=== PATIENT | male | born 1965 | race Caucasian/White ===

== ENCOUNTER 2017-07-25 19:04 | Emergency (ER) | payer BC ==
[~2017-07-25] VITALS: Ht 177.8 cm; Wt 94.2 kg
[~2017-07-25 19:04] MED LIST: ALLO300T2 PO; GABA-113 PO; LISI10TA PO; SIMV20TA2 PO; VIMOVO PO
[2017-07-25 19:18] VITALS: TEMP 36.9; Ht 177.8 cm; Wt 94.2 kg
[2017-07-25] MEDS ORDERED: ONDANSETRON 4MG OD TAB PO STA (19:35)
[2017-07-25] MEDS ORDERED: OXYCODONE/ACETAMINOPHEN 5-325 TAB PO STA (19:35)
[2017-07-25] MEDS ORDERED: DIPHTHERIA/TETANUS/PERTUSSIS 0.5 ML SYR/VIAL IM. ONE (19:45)
[2017-07-25] MEDS ORDERED: ATOR-24 PO (20:17)
[2017-07-25] MEDS ORDERED: LISI-725 PO (20:17)
[2017-07-25] MEDS ORDERED: INDO-24 PO (20:17)
[2017-07-25] MEDS ORDERED: GLC/500 PO (20:17)
[2017-07-25] MEDS ORDERED: SERT-234 PO (20:17)
[2017-07-25] MEDS ORDERED: PRLSR20 PO (20:17)
[2017-07-25] MEDS ORDERED: MELO15TA4 PO (20:17)
[2017-07-25] MEDS ORDERED: SITA100T3 PO (20:17)
--- NOTE | 2017-07-25 20:41 | DIAGNOSTIC IMAGING REPORT ---
LUMBAR SPINE WITHOUT CT DOSE: 1082.72 mGy.cm HISTORY: hx surgery; fall TECHNIQUE: Multiaxial CT images of the lumbar spine were performed and reformatted in the sagittal and coronal plane without the use of contrast. A dose lowering technique was utilized adhering to the principles of ALARA. COMPARISON: None. FINDINGS: No evidence for acute compression deformity. Degenerative disc change most prominent from L1 through L3. Findings of a posterior hemilaminotomy on the right L5-S1. Broad-based bulging discs from L3 through L5. No major compromise of the spinal canal. IMPRESSION: Degenerative and postoperative change. No acute process. Multilevel bulging discs with no major compromise of the spinal canal The above report was generated using voice recognition software. It may contain grammatical, syntax or spelling errors. Electronically signed by: Delfino Medina M.D. 07/25/2017 8:40 PM Dictated Date/Time: 07/25/2017 8:25 PM
--- NOTE | 2017-07-25 20:45 | DIAGNOSTIC IMAGING REPORT ---
R ELBOW MIN 3 VIEWS ROUTINE CLINICAL HISTORY: fall trauma. Pain. COMPARISON: None. DISCUSSION: The bones and joint spaces appear intact. There is no evidence of fracture, dislocation or bony disease. There is no evidence for soft tissue swelling. IMPRESSION: Negative study. The above report was generated using voice recognition software. It may contain grammatical, syntax or spelling errors. Electronically signed by: Delfino Medina M.D. 07/25/2017 8:44 PM Dictated Date/Time: 07/25/2017 8:44 PM
--- NOTE | 2017-07-25 20:50 | DIAGNOSTIC IMAGING REPORT ---
R FOREARM 2 VIEWS ROUTINE CLINICAL HISTORY: fall trauma. Pain. COMPARISON: None. DISCUSSION: The bones and joint spaces appear intact. There is no evidence of fracture, dislocation or bony disease. There is no evidence for soft tissue swelling. IMPRESSION: Negative study. The above report was generated using voice recognition software. It may contain grammatical, syntax or spelling errors. Electronically signed by: Delfino Medina M.D. 07/25/2017 8:49 PM Dictated Date/Time: 07/25/2017 8:49 PM
--- NOTE | 2017-07-25 20:54 | DIAGNOSTIC IMAGING REPORT ---
R HAND MIN 3 VIEWS ROUTINE CLINICAL HISTORY: fall trauma COMPARISON: None. DISCUSSION: Comminuted fracture base proximal phalanx fifth finger. Fracture extends to the articular surface. No evidence for dislocation. Moderate localized soft tissue edema. All remaining osseous structures are unremarkable. IMPRESSION: Comminuted fracture base proximal phalanx fifth finger. This extends to the articular surface. No evidence dislocation. The above report was generated using voice recognition software. It may contain grammatical, syntax or spelling errors. Electronically signed by: Delfino Medina M.D. 07/25/2017 8:53 PM Dictated Date/Time: 07/25/2017 8:52 PM
[2017-07-25] MEDS ORDERED: PERCOCET HOME PACK PO ONE (21:00)
[2017-07-25] MEDS ORDERED: OXYC-57 PO (21:03)
[2017-07-25 21:22] VITALS: BP 145/80; PULSE 72; O2SAT 98
--- NOTE | 2017-07-26 20:13 | EMERGENCY ROOM VISIT NOTE ---
ED Visit Note First contact with patient: 19:21 Chief Complaint: I fell down the stairs. History of Present Illness: Mr. Roberts is a 52-year-old white male who ambulates into the ED accompanied by female friend complaining of lumbar back pain and right arm/hand pain following a fall. Historically patient reports she has a history of an L5-S1 discectomy from many years ago with residual chronic pain of the lumbar spine. Patient reports just less than 1 hour ago he slipped while carrying a bag of pellets down the basement steps. He reports he fell down approximately 4 with steps. Patient reports before the fall he was not experiencing any lightheadedness and dizziness, the time of the fall he did not strike his head or have a loss of consciousness and since the fall he is not having any signs of head injury. Currently he is complaining of lumbar spine. This is located at the area of L4- L5 area. He describes his pain as sharp and throbbing. He rates his discomfort 9/10. There is radiation of his pain into the right lower extremity but does report he has residual pain from his previous surgery that radiates into the right lower extremity; currently he does not feel this is any worse than normal. He reports his pain worsens with all movement of the lumbar back and ambulation. He has not identified any alleviating factors related to the pain. He has not taken any medication for pain prior to arrival at the hospital. Additionally he complains of right elbow, right forearm and right little finger pain. Patient's elbow pain is located over the olecranon process. He describes this as an achy sensation. He does not rate this discomfort. His pain worsens slightly with palpation. He has not identified any alleviating factors related to the pain. Patient's right forearm pain is in the mid forearm over the posterior aspect. Once again he describes this as a mild achy sensation. He does not rate this discomfort. Pain worsens with palpation. He has not identified any alleviating factors related to the pain. Patient's right little finger pain is located over the MCP and the proximal phalanx area. He describes this as a sharp and throbbing sensation. He rates this discomfort 6/10. His pain worsens with palpation, flexion and extension of the MCP and PIP joints. He has not identified any alleviating factors related to the pain. He denies headache, dizziness, lightheadedness, abnormal neurological symptoms, cervical pain, thoracic pain, chest pain, shortness of breath, abdominal pain, nausea, vomiting, upper or lower extremity weakness/numbness/tingling. Review of Systems: As noted above in history of present illness. All body systems were reviewed and found to be negative as noted above. Past Medical History: As previously noted, diabetes, hypertension. Current Medications: Medications Dose Route/Sig Max Daily Dose Days Date Category Dose Instructions Indocin (Indomethacin) 50 Mg Cap 50 Mg PO TID PRN 07/25/17 Reported TAKE THIS MEDICATION WITH FOOD Glucophage (Metformin Hcl) 500 Mg Tab 1,000 Mg PO BIDM 07/25/17 Reported Lipitor (Atorvastatin Calcium) 40 Mg Tab 40 Mg PO DAILY 07/25/17 Reported Januvia (Sitagliptin Phosphate) 100 Mg Tab 100 Mg PO DAILY 07/25/17 Reported TAKE THIS MEDICATION ONCE A DAY BEFORE BREAKFAST Prilosec (Omeprazole) 20 Mg Capcr 20 Mg PO BID 07/25/17 Reported Mobic (Meloxicam) 15 Mg Tab 15 Mg PO DAILY 07/25/17 Reported Zoloft (Sertraline HCl) 100 Mg Tab 100 Mg PO DAILY 07/25/17 Reported Zestril (Lisinopril) 20 Mg Tab 20 Mg PO DAILY 07/25/17 Reported Zyloprim (Allopurinol) 300 Mg Tab 300 Mg PO DAILY 09/07/11 Reported Allergies to Medications: Sulfate; codeine is listed but patient reports this is not an allergy. Social History: Patient is currently employed; he feels safe in his home environment; he admits to tobacco use and denies alcohol use. Physical Examination: Vital Signs: Date Time Temp Pulse Resp B/P (MAP) Pulse Ox O2 Delivery O2 Flow Rate FiO2 07/25/17 21:22 72 20 145/80 98 07/25/17 19:18 36.9 90 18 180/93 Room Air GENERAL: 52-year-old male in moderate distress due to pain, nontoxic-appearing, afebrile and hemodynamically stable. NEUROLOGICAL: Awake, alert and oriented to person, place and time. Answering questions appropriately and following commands. Normal gait. Good hand eye coordination. Radial nerves II through XII grossly intact. Good short-term and long-term recall. SKIN: Warm, dry and pink. Right Upper Extremity: Superficial abrasions noted over the posterior elbow, posterior forearm and right little finger. No active bleeding. HEENT: Atraumatic and normocephalic. Skull: No bony deformity, bony crepitus, swelling, ecchymosis or tenderness. No raccoon's eyes or johnson signs. No drainage in the ears of the nostril; no hemotympanum. Face: No bony deformity, bony crepitus, swelling or ecchymosis. PERRLA. EOMI without nystagmus. No malocclusion. Airway patent. Speech is normal and clear. Trachea midline. No jugular venous distention. BACK: No tenderness over the bony cervical and thoracic spine. Range of motion of the cervical spine No CVA tenderness. Moderate tenderness over the L2 through L4 area predominantly over the bony areas but also in the paraspinous musculature. I do not appreciate any bony deformity, bony crepitus , step-offs, swelling or ecchymosis. I do not appreciate any muscle spasm. Decreased range of motion at the waist due to pain. Negative straight leg raise test. THORAX: Lungs sounds are clear to auscultation and equal bilaterally with symmetrical chest wall. No wheezing, rales or rhonchi. No crepitus, tenderness , subcutaneous air or deformities noted. HEART: Regular rate and rhythm. No gallops, rubs or murmurs are appreciated. ABDOMEN: Flat, soft and nontender. Positive bowel sounds in all quadrants. No guarding, rigidity or organomegaly. RIGHT UPPER EXTREMITY: Deformity noted of the little finger at the MCP joint area. No tenderness in the shoulder or upper arm. Mild tenderness over the posterior elbow at the olecranon process without bony deformity, bony crepitus, swelling or ecchymosis. Moderate tenderness over the posterior forearm without bony deformity or crepitus. Tenderness over the distal fifth metacarpal, fifth MCP joint and fifth proximal phalange. There is deformity with the distal phalanxes radiated medially. Questionable bony crepitus in this area. Patient has full range of motion at the shoulder, elbow and forearm and wrist. Decreased range of motion of the little finger in all movements of the MCP joint. Throughout the hand the skin was warm and pink and capillary refill is brisk. He was able to distinguish light sensations through all dermatomes of the upper extremities. LOWER EXTREMITIES: No gross bony deformities. No shortening or malrotation. No tenderness over the hips, knees, lower legs, ankles and feet. Moves all joints well on command and with purpose. All distal neurovascular statuses are intact and equal bilaterally. ED Course: Patient is assessed as noted above. Patient's medication list was reviewed. Patient was given one Percocet 5/325 mg tablet by mouth for pain, 4 mg of Zofran ODT and a Adacel booster. CT Lumbar Spine: Was reviewed by myself and read by the radiologist showing degenerative and postoperative changes with no acute process. Multiple levels of bulging of discs without compromise of spinal canal. Right Elbow X-Rays: Were read by myself and the radiologist showing no acute fractures or dislocations. Right Forearm X-Rays: Were read by myself and the radiologist showing no acute fractures or dislocations. Right Hand X-Rays: Were read by myself and the radiologist showing a comminuted fracture at the base of the proximal phalanx of the little finger. This fracture extends into the articular surface. No evidence of dislocation. Patient's abrasions were cleansed with antibacterial soap and water and covered with a bacitracin dressing. Patient's little finger fracture was james taped to the ring finger and then splinted with a metal splint. Patient was educated about today's findings and instructed on his treatment plan ; he verbalizes understanding and agreement with this plan. Clinical Impression: Fall. Right fifth proximal phalanx comminuted fracture. Lumbar back pain. Right elbow and forearm pain. Right elbow and forearm abrasions. Disposition: Patient discharged home in stable condition accompanied by his girlfriend; prior to departure he was reassessed and subjectively reported he was feeling better and rated his discomfort 5/10. Plan: Comfort measures were discussed with the patient including rest, ice and splint use. Additionally he was placed on a sliding pain medication scale of ibuprofen , acetaminophen and Percocet; he was given appropriate narcotic precautions and his name was checked on the state database and no red flags were noted. Patient was educated on signs of wound care and signs of infection. Patient was encouraged to follow-up with orthopedics for definitive care and treatment of his little finger fracture. Patient was encouraged to follow-up with his primary care provider for recheck of his back pain and/or for sign of infection. Patient was encouraged return ED for worsening/uncontrolled pain, right hand/ little finger weakness/numbness/tingling, signs of infection, bowel and bladder dysfunction, genital paresthesias, lower extremity weakness/numbness/tingling or any new/concerning symptoms.
== END 2017-07-25 21:24 | disposition home or self-care (01) ==
LOC: C.EDB 19:05 → C.EDD 21:24
DX: S62.616A Displaced fracture of proximal phalanx of right little finger, initial encounter for closed fracture (principal); S50.311A Abrasion of right elbow, initial encounter; S50.811A Abrasion of right forearm, initial encounter; M54.5 Low back pain; Z23 Encounter for immunization; W10.8XXA Fall (on) (from) other stairs and steps, initial encounter; G89.29 Other chronic pain; E11.9 Type 2 diabetes mellitus without complications; I10 Essential (primary) hypertension; Z79.84 Long term (current) use of oral hypoglycemic drugs; Z79.1 Long term (current) use of non-steroidal anti-inflammatories (NSAID)